=== PATIENT | female | born 1940 | race Caucasian/White ===

== ENCOUNTER 2019-02-16 10:58 | Emergency (ER) | payer MEDICARE ==
--- OUTSIDE RECORDS SUMMARY | 2019-02-16 11:14 | XMS REPORT | Continuity of Care Document ---
:1940 External Reference #:[id number] Author Name Arely Gaitan Care Team Providers Name Role Nan Lyle RPA Primary Care Physician Unavailable Payers Date Identification Numbers Payment Provider Subscriber Effective: 2008 Policy Number: [id number] [employer] Medicare Lisette Harding PayID: [id number] [address] [place] [phone] Advance Directives Description No Information Available Problems Active Problems Provider Date Hearing loss Nan Ellen, PA Onset: 02/11/2019 Note: with tinnitus Chronic obstructive lung disease Nan Hughes, PA Onset: 01/12/2019 Atrial tachycardia Nan Folcroft, PA Onset: 01/12/2019 Paroxysmal atrial fibrillation Nan Folcroft, PA Onset: 01/12/2019 Note: elective cardioversion 2017 Essential hypertension Nan Ellen, PA Onset: 01/12/2019 Hyperlipidemia Nan Folcroft, PA Onset: 01/12/2019 Peripheral vascular disease Nan Folcroft, PA Onset: 01/12/2019 Arterial retinal branch occlusion Nan Ellen, PA Onset: 01/12/2019 Non-rheumatic mitral regurgitation Nan Ellen, PA Onset: 01/12/2019 Vitamin D deficiency Nan Folcroft, PA Onset: 01/12/2019 Chronic kidney disease Nan Folcroft, PA Onset: 01/12/2019 Secondary hyperparathyroidism Nan Folcroft, PA Onset: 01/12/2019 Pernicious anemia Nan Ellen, PA Onset: 01/12/2019 Iron deficiency anemia Nan Folcroft, PA Onset: 01/12/2019 Spinal stenosis of lumbar region Nan Ellen, PA Onset: 01/12/2019 Degenerative joint disease involving multiple Nan Folcroft, PA Onset: 11/2018 joints Note: cervical/dorsal/lumbar spine, Common bile duct calculus ERON Lazcano Onset: 01/12/2019 Note: Actigall Family History Date Family Member(s) Observation Comments Father Leg Amputation Father Sepsis Mother Alzheimer's Disease Social History Type Date Description Comments Sex Unknown Lives With Alone Diet follows no dietary restrictions Occupation Unemployed ETOH Use Denies alcohol use Tobacco Use Start: Unknown End: Patient is a former smoker Quit tobacco products, Unknown but using e-Cigarette Smoking Status Reviewed: 02/11/19 Patient is a former smoker Quit tobacco products, but using e-Cigarette Allergies, Adverse Reactions, Alerts Active Allergies Reaction Severity Comments Date Codeine 01/12/2019 Medications Active Medications SIG Qnty Indications Ordering Date Provider Doxycycline Hyclate 1 cap (or tablet) by 20caps L30.9 Elmer 02/11/2019 mouth bid MD Loretta 100mg Capsules Metoprolol Succinate 1 by mouth every day Ana Valdes 01/21/2019 ER 25mg Tablets ER 24HR Triamcinolone thin layer to face 15gm Elmer 01/13/2019 Acetonide qhs MD Loretta 0.1% Ointment Pantoprazole Sodium 1 by mouth every day Elmer 01/12/2019 MD Loretta 40mg Tablets DR Lovastatin 1 by mouth every day Elmer 01/12/2019 40mg Tablets MD Loretta Tramadol HCL 1-2 tablets by mouth 30tabs 01/12/2019 50mg every 6 hours as MD Loretta Tablets needed pain Gabapentin 1 to 2 tabs by mouth Elmer 01/12/2019 100mg three times a day MD Loretta Capsules Iron Slow Release take one 01/12/2019 capsule/tablet daily MD Loretta 143(45Fe) mg Tablets by mouth ER Cyanocobalamin 1 milliliter 01/12/2019 intramuscular q 4 MD Loretta 1000mcg/ML Solution weeks Eliquis 1 tab by mouth twice ValdesAna paul 12/21/2018 2.5mg Tablets a day Miralax 1 scoop in fluid by Unknown [id number] Powder mouth every day as needed Actigall 2 caps by mouth Gallo Carlos, 300mg Capsules twice a day Amiodarone HCL 1 by mouth every day Ana Valdes 200mg Tablets Digoxin 1 tab po M, W, F Ana Valdes 125mcg Tablets History Medications Cyclobenzaprine HCL 1 by mouth Elmer Burgos MD 01/12/2019 - 5mg Tablets three times a 01/17/2019 day Immunizations Description No Information Available Vital Signs Date Vital Result Comment 02/11/2019 2:35pm Height 62.5 inches 5'2.50" Weight 121.38 lb Heart Rate 68 /min BP Systolic Sitting 118 mmHg BP Diastolic Sitting 64 mmHg O2 % BldC Oximetry 97 % BMI (Body Mass Index) 21.8 kg/m2 01/21/2019 10:14am Height 62.5 inches 5'2.50" Weight 119.00 lb Heart Rate 60 /min BP Systolic Sitting 118 mmHg BP Diastolic Sitting 68 mmHg O2 % BldC Oximetry 97 % BMI (Body Mass Index) 21.4 kg/m2 01/12/2019 3:27pm Height 62.5 inches 5'2.50" Weight 122.00 lb Heart Rate 78 /min BP Systolic Sitting 152 mmHg BP Diastolic Sitting 80 mmHg O2 % BldC Oximetry 96 % BMI (Body Mass Index) 22.0 kg/m2 Results Description No Information Available Procedures Date Code Description Status 04/28/2017 [id number] Mammogram Completed 02/11/2012 [id number] Colonoscopy Completed Encounters Type Date Location Provider Dx Diagnosis Office Visit 01/21/2019 [facility] Department Nan I48.1 Persistent atrial 10:00a ERON Hughes fibrillation R23.3 Spontaneous ecchymoses [facility] ERON Hughes fibrillation R42 Dizziness and giddiness R23.3 Spontaneous ecchymoses M21.612 Bunion of left foot Plan of Treatment Future Appointment(s):03/09/2019 11:00 am - ERON Lazcano at [facility] Emergency Department02/17/2019 10:00 am - Primo Baumann MD at [facility] Dermatology AT [id number] - Nan Hughes PAL30.9 Dermatitis, unspecifiedNew Medication: Doxycycline Hyclate 100 mg - 1 cap (or tablet) by mouth bidComments:Redness persisting on (L) cheek, warmth and +/- swellingItching and petechiae Has dermatology consult pendingPruritis responded to cortisone preparation(s) initially...Will try treatment with antibiotic and klxihwuQ14.19 Tinnitus, unspecified ear
--- OUTSIDE RECORDS SUMMARY | 2019-02-16 11:14 | XMS REPORT | Continuity of Care Document ---
:1940 External Reference #:[id number] Author Name Arely Gaitan Care Team Providers Name Role Nan Llye RPA Primary Care Physician Unavailable Payers Date Identification Numbers Payment Provider Subscriber Effective: 2008 Policy Number: [id number] [employer] Medicare Lisette Harding PayID: [id number] [address] [place] [phone] Advance Directives Description No Information Available Problems Active Problems Provider Date Chronic obstructive lung disease Nan Ellen, PA Onset: 01/12/2019 Atrial tachycardia Nan Hughes, PA Onset: 01/12/2019 Paroxysmal atrial fibrillation Nan Hughes, PA Onset: 01/12/2019 Note: elective cardioversion 2017 Essential hypertension Nan Hughes, PA Onset: 01/12/2019 Hyperlipidemia Nan Hughes, PA Onset: 01/12/2019 Peripheral vascular disease Nan Hughes, PA Onset: 01/12/2019 Arterial retinal branch occlusion Nan Hughes, PA Onset: 01/12/2019 Non-rheumatic mitral regurgitation Nan Hughes, PA Onset: 01/12/2019 Vitamin D deficiency Nan Hughes, PA Onset: 01/12/2019 Chronic kidney disease Nan Hughes, PA Onset: 01/12/2019 Secondary hyperparathyroidism Nan Hughes, PA Onset: 01/12/2019 Pernicious anemia Nan Hughes, PA Onset: 01/12/2019 Iron deficiency anemia Nan Hughes, PA Onset: 01/12/2019 Spinal stenosis of lumbar region Nan Hughes, PA Onset: 01/12/2019 Degenerative joint disease involving multiple Nan Hughes, PA Onset: 11/2018 joints Note: cervical/dorsal/lumbar spine, Common bile duct calculus Nan [place], PA Onset: 01/12/2019 Note: Actigall Family History Date Family Member(s) Observation Comments Father Leg Amputation Father Sepsis Mother Alzheimer's Disease Social History Type Date Description Comments Sex Unknown Lives With Alone Diet follows no dietary restrictions Occupation Unemployed ETOH Use Denies alcohol use Tobacco Use Start: Unknown End: Patient is a former smoker Quit tobacco products, Unknown but using e-Cigarette Smoking Status Reviewed: 01/21/19 Patient is a former smoker Quit tobacco products, but using e-Cigarette Allergies, Adverse Reactions, Alerts Active Allergies Reaction Severity Comments Date Codeine 01/12/2019 Medications Active Medications SIG Qnty Indications Ordering Date Provider Metoprolol Succinate 1 by mouth every day Valdes, Ana 01/21/2019 ER 25mg Tablets ER 24HR Triamcinolone thin layer to face 15gm Elmer 01/13/2019 Acetonide qhs MD Loretta 0.1% Ointment Pantoprazole Sodium 1 by mouth every day Elmer 01/12/2019 MD Loretta 40mg Tablets DR Lovastatin 1 by mouth every day Elmer 01/12/2019 40mg Tablets MD Loretta Tramadol HCL 1-2 tablets by mouth 30tabs Elmer 01/12/2019 50mg every 6 hours as MD Loretta Tablets needed pain Gabapentin 1 to 2 tabs by mouth Elmer 01/12/2019 100mg three times a day MD Loretta Capsules Iron Slow Release take one 01/12/2019 capsule/tablet daily MD Loretta 143(45Fe) mg Tablets by mouth ER Cyanocobalamin 1 milliliter Elmer 01/12/2019 intramuscular q 4 MD Loretta 1000mcg/ML Solution weeks Eliquis 1 tab by mouth twice Valdes Ana 12/21/2018 2.5mg Tablets a day Miralax 1 scoop in fluid by Unknown 3350NF Powder mouth every day as needed Actigall 2 caps by mouth Gallo Carlos, 300mg Capsules twice a day Amiodarone HCL 1 by mouth every day Valdes, Ana 200mg Tablets Digoxin 1 tab po M, W, F Valdes, Ana 125mcg Tablets History Medications Cyclobenzaprine HCL 1 by mouth Elmer Burgos MD 01/12/2019 - 5mg Tablets three times a 01/17/2019 day Immunizations Description No Information Available Vital Signs Date Vital Result Comment 01/21/2019 10:14am Height 62.5 inches 5'2.50" Weight [...] Available Procedures Date Code Description Status 04/28/2017 [id number] Mammogram Completed 02/11/2012 [id number] Colonoscopy Completed Encounters Type Date Location Provider Dx Diagnosis Office Visit 01/21/2019 [facility] Primary Care Nan I48.1 Persistent atrial 10:00a ERON Hughes fibrillation R23.3 Spontaneous ecchymoses Office Visit 01/12/2019 3:00p [facility] Primary Nan I48.91 Unspecified atrial Care ERON Hughes fibrillation R42 Dizziness and giddiness R23.3 Spontaneous ecchymoses M21.612 Bunion of left foot Plan of Treatment Future Appointment(s):03/09/2019 11:00 am - ERON Lazcano at [facility] Primary Care02/17/2019 10:00 am - Primo Baumann MD at [facility] Dermatology AT [id number] - Nan Hughes [id number] Persistent atrial fibrillationComments:Managed by cardiology. Has appt pending.Current tx: Amiodarone, Digoxin, metoprolol, MiiohahQ74.3 Spontaneous ecchymosesComments:Has follow up pending with hematology, Dr Allison.AllNew Medication:Metoprolol Succinate ER 25 mg - 1 by mouth every dayComments:Reviewed medication list:
[2019-02-16 11:31] VITALS: BP 124/72
--- NOTE | 2019-02-16 11:59 | UC ---
Skin Complaint HPI - HPI Summary HPI Summary: Pt c/o of "red rash to face" also c/o that rash is itchy and that right side of cheek is "hot" but left is not that she has had for over 2 weeks. Pt has been seen by PCP who has prescribed two different lotions/creams that have not improved the rash. Pt was recently given doxycycline PO and began taking it on 02/13/19 and pt does not it is improving her skin condition. Pt states the rash feel "hot" on left cheek but not on right cheek. Pt has an appointment with [facility] printed circuit designer tomorrow for skin condition on ears. Pt seems mildly confused about medications. - History of Current Complaint Chief Complaint: UCSkin Time Seen by Provider: 02/16/19 11:41 Stated Complaint: SKIN - FACIAL Hx Obtained From: Patient ?: No Onset/Duration: Gradual Onset, Lasting Days, Still Present Skin Exposure Onset/Duration: Days Ago Timing: Constant Onset Severity: Mild Current Severity: Mild Pain Intensity: 0 Location: Face - bilateral cheeks - Allergy/Home Medications Allergies/Adverse Reactions: Allergies Allergy/AdvReac Type Severity Reaction Status Date / Time codeine Allergy GI Upset Verified 02/16/19 11:32 Home Medications: Home Medications Apixaban* [Eliquis*] 2.5 mg PO BID 02/16/19 [History Confirmed 02/16/19] Cyanocobalamin INJ * [Vitamin B12 INJ *] 1,000 mcg IM MONTHLY 02/16/19 [History Confirmed 02/16/19] Digoxin TAB* [Lanoxin TAB*] 0.125 mg PO DAILY 02/16/19 [History Confirmed ] Gabapentin CAP(*) [Neurontin 100 mg CAP(*)] 100 mg PO TID 02/16/19 [History Confirmed 02/16/19] Iron 90 mg PO DAILY 02/16/19 [History Confirmed 02/16/19] Lovastatin [Altoprev] 40 mg PO DAILY 02/16/19 [History Confirmed 02/16/19] Metoprolol Succinate [Metoprolol Succinate ER] 25 mg PO DAILY 02/16/19 [History Confirmed 02/16/19] Pantoprazole TAB * [Protonix TAB*] 40 mg PO DAILY 02/16/19 [History Confirmed ] Polyethylene Glycol 3350* [Miralax*] 17 gm PO DAILY PRN 02/16/19 [History Confirmed 02/16/19] Triamcinolone 0.1% CREAM (NF) [Kenalog 0.1% Cream (NF)] 1 applic TOPICAL BEDTIME 02/16/19 [History Confirmed 02/16/19] Ursodiol CAP* [Actigall CAP 300 MG*] 300 mg PO BID 02/16/19 [History Confirmed 02/16/19] traMADol TAB* [Ultram*] 50 mg PO Q6HR PRN 02/16/19 [History Confirmed 02/16/19] PMH/Surg Hx/FS Hx/Imm Hx Previously Healthy: No Cardiovascular History: Cardiac Disease - Surgical History Surgical History: Yes Surgery Procedure, Year, and Place: [facility] - Family History Known Family History: Positive: Cardiac Disease - Social History Occupation: Retired Lives: Alone Alcohol Use: None Substance Use Type: None Smoking Status (MU): Light Every Day Tobacco Smoker Type: eCigarettes Length of Time of Smoking/Using Tobacco: 1 month Have You Smoked in the Last Year: Yes - ecig - Immunization History Hx Tetanus, Diphtheria Vaccination: No - unsure Vaccination Up to Date: No Review of Systems All Other Systems Reviewed And Are Negative: Yes Constitutional: Positive: Negative Skin: Positive: Rash - face Eyes: Positive: Negative ENT: Positive: Negative Respiratory: Positive: Negative Cardiovascular: Positive: Negative Gastrointestinal: Positive: Negative Genitourinary: Positive: Negative Motor: Positive: Negative Neurovascular: Positive: Negative Musculoskeletal: Positive: Negative Neurological: Positive: Negative Psychological: Positive: Negative Is Patient Immunocompromised?: No Physical Exam Triage Information Reviewed: Yes Completion Of Physical Exam Limited Due To: Other - pt is mildly confused about medications Appearance: Well-Appearing Vital Signs: Initial Vital Signs Temp 97.9 F 02/16/19 11:16 Pulse 70 02/16/19 11:16 Resp 18 02/16/19 11:16 BP 124/72 02/16/19 11:16 Pulse Ox 99 02/16/19 11:16 Vital Signs Reviewed: Yes Eye Exam: Normal ENT Exam: Normal ENT: Positive: Hearing grossly normal Dental Exam: Normal Neck exam: Normal Respiratory: Positive: No respiratory distress Musculoskeletal Exam: Normal Neurological Exam: Normal Psychological Exam: Normal Skin: Positive: Rashes - confluent, erythematous, small papules scattered, areas of ruptured blood vessels that are nonblanchable. Course/Dx - Differential Diagnoses - Skin Complaint Differential Diagnoses: Drug Rash - Diagnoses Provider Diagnosis: Rash and nonspecific skin eruption, Rosacea, unspecified Discharge - Sign-Out/Discharge Documenting (check all that apply): Patient Departure All imaging exams completed and their final reports reviewed: No Studies - Discharge Plan Condition: Stable Disposition: HOME Prescriptions: metroNIDAZOLE [Metronidazole] 45 gm TP Q12H 7 Days #1 gel..gram. Patient Education Materials: Acute Rash (ED) Referrals: Estrellita Green MD [Medical Doctor] - 02/17/19 10:00 am Nan Hughes PA [Primary Care Provider] - Additional Instructions: Please keep your appointment tomorrow with [facility] printed circuit designer as scheduled. . - Billing Disposition and Condition Condition: STABLE Disposition: Home
== END 2019-02-16 12:17 | disposition home or self-care (01) ==
LOC: UCCORT 10:58
DX: L71.9 Rosacea, unspecified (principal); R21 Rash and other nonspecific skin eruption; I51.9 Heart disease, unspecified; F17.210 Nicotine dependence, cigarettes, uncomplicated; Z88.5 Allergy status to narcotic agent
CPT/HCPCS: 99212; G0463